=== PATIENT | female | born 1950 | race Caucasian/White ===

== ENCOUNTER 2017-08-17 11:36 | Emergency (ER) | payer OTHER ==
[~2017-08-17] VITALS: Ht 165.1 cm; Wt 81.6 kg
[~2017-08-17 11:36] MED LIST: AMARYL; CIPRO500 MG PO; COZAAR PO; COZAAR25 MG PO; FLAGYL ER750 MG PO; GLIMEPIRIDE4 MG; GLIMEPIRIDE4 MG PO; LEVSIN/SL0.125 MG SL; METFORMIN HCL500 MG; METFORMIN HCL500 MG PO
== END 2017-08-17 16:32 | disposition home or self-care (01) ==
LOC: ER 11:36
DX: J00 Acute nasopharyngitis [common cold] (principal)

== ENCOUNTER 2017-10-15 06:42 | Emergency (ER) | payer OTHER ==
[~2017-10-15] VITALS: Ht 165.1 cm; Wt 79.4 kg
[2017-10-15] MEDS ORDERED: METFORMIN HCL850 MG (07:05)
[2017-10-15] MEDS ORDERED: SIMVASTATIN20 MG (07:08)
== END 2017-10-15 11:27 | disposition home or self-care (01) ==
LOC: ER 06:42
DX: J06.9 Acute upper respiratory infection, unspecified (principal)

== ENCOUNTER 2018-11-10 07:30 | Emergency (ER) | payer OTHER ==
[~2018-11-10] VITALS: Ht 165.1 cm; Wt 81.6 kg
[~2018-11-10 07:30] MED LIST changes: +METFORMIN HCL850 MG; +SIMVASTATIN20 MG
== END 2018-11-10 10:31 | disposition home or self-care (01) ==
LOC: ER 07:30
DX: J40 Bronchitis, not specified as acute or chronic (principal)

== ENCOUNTER 2019-03-18 09:19 | Emergency (ER) | payer OTHER ==
[~2019-03-18] VITALS: Ht 165.1 cm; Wt 81.6 kg
[2019-03-18] MEDS ORDERED: GLIMEPIRIDE4 MG PO (09:39)
[2019-03-18] MEDS ORDERED: METFORMIN HCL1000 M2 PO (09:39)
[2019-03-18] MEDS ORDERED: SIMVASTATIN20 MG PO (09:40)
== END 2019-03-18 17:04 | disposition home or self-care (01) ==
LOC: ER 09:19
DX: K57.30 Diverticulosis of large intestine without perforation or abscess without bleeding (principal); R10.32 Left lower quadrant pain

== ENCOUNTER 2019-06-11 10:21 | Outpatient (CLI) | payer OTHER ==
[~2019-06-11 10:21] MED LIST changes: +METFORMIN HCL1000 M2 PO; +SIMVASTATIN20 MG PO
== END 2019-06-11 16:13 | disposition home or self-care (01) ==
LOC: RAD 10:21
DX: M25.562 Pain in left knee (principal); M25.561 Pain in right knee

== ENCOUNTER 2019-06-17 11:16 | Outpatient (CLI) | payer OTHER | END 2019-06-17 11:18 | disposition home or self-care (01) | LOC: MRI 11:16 | DX: M17.11 Unilateral primary osteoarthritis, right knee (principal); M23.91 Unspecified internal derangement of right knee | CPT/HCPCS: 73718 ==

== ENCOUNTER 2019-10-14 09:39 | Inpatient (IN) | payer OTHER ==
[~2019-10-14] VITALS: Ht 165.1 cm; Wt 65.8 kg
[2019-10-14] MEDS ORDERED: COZAAR25 MG PO (10:17)
--- NOTE | 2019-10-14 10:20 | NUR ---
PAciente alerta, orientada x 3 esferas regfiere tener sandra dolor abdominal cuadrante inferior hace 5 sam, pte hx.diverticulos. se ubica en area de observacion.
--- NOTE | 2019-10-14 11:27 | NUR ---
MR DANIELLE ORIENTA A PACIENTE SOBRE ORDENES MEDICAS, COLECTA MUESTRAS DE ADELFO Y CANALIZA VENA. PACIENTE REHUSO LA ADMINISTRACION DE MORFINA, REFIERE NO TENER DOLOR, TAMBIEN REHUSO LA ADMINISTRACION DE ZOFRAN, REFIERE NO TENER NAUSEAS NI VOMITOS. SE HACE ENTREGA DE CONSTRASTE GASTROVIEW CON INSTRUCCIONES DE TIHERNO INGERIRLO, REFIERE ENTENDER.
--- NOTE | 2019-10-14 15:52 | NUR ---
SE RECIBE PTE ALERTA Y ORIENTADA X 3 ESFERAS EN CAMA CON BARANDAS ELEVADAS POR SEGURIDAD. BUEN PATRON RESPIRATORIO. RECIBIENDO IV'S 0.9NSS BAJANDO A 50ML/HR POR VENOPUNCION EN BRAZO DERECHO AREA NAZARIO DE EDEMA Y ERITEMA. PENDIENTE RESULTADO DE CT. SE MANTIENE EN OBSERVACION POR CAMBIOS.
[2019-10-17] MEDS ORDERED: HYOSCYAMINE0.125 M1 SL (08:45)
[2019-10-17] MEDS ORDERED: LOSARTAN POTASS25 MG PO (08:45)
[2019-10-17] MEDS ORDERED: FAMOTIDINE20 MG PO (08:46)
[2019-10-17] MEDS ORDERED: GLIMEPIRIDE2 MG PO (08:46)
[2019-10-17] MEDS ORDERED: METFORMIN HCL500 MG PO (08:46)
== END 2019-10-17 18:33 | disposition home or self-care (01) | DRG 392 ==
LOC: ER 09:39 → MEDI 17:23 → SEC-K 17:23 → MEDI 18:25
PROVIDERS: ADMIT Internal Medicine; ATTEND Internal Medicine
PROC: BW21Y0Z Computerized Tomography (CT Scan) of Abdomen and Pelvis using Other Contrast, Unenhanced and Enhanced (ICD-10-PCS; principal; 2019-10-14)
DX: K57.32 Diverticulitis of large intestine without perforation or abscess without bleeding (principal); K92.1 Melena; E11.65 Type 2 diabetes mellitus with hyperglycemia; I88.0 Nonspecific mesenteric lymphadenitis; I10 Essential (primary) hypertension; Z20.828 Contact with and (suspected) exposure to other viral communicable diseases; Z79.4 Long term (current) use of insulin

== ENCOUNTER 2020-05-30 13:36 | Emergency (ER) | payer OTHER ==
[~2020-05-30] VITALS: Ht 165.1 cm; Wt 71.2 kg
[~2020-05-30 13:36] MED LIST changes: +FAMOTIDINE20 MG PO; +GLIMEPIRIDE2 MG PO; +HYOSCYAMINE0.125 M1 SL; +LOSARTAN POTASS25 MG PO
== END 2020-05-30 20:10 | disposition home or self-care (01) ==
LOC: ER 13:36
DX: R10.9 Unspecified abdominal pain (principal); K57.90 Diverticulosis of intestine, part unspecified, without perforation or abscess without bleeding

== ENCOUNTER 2023-03-02 09:12 | Outpatient (CLI) | payer OTHER | END 2023-03-02 09:30 | disposition home or self-care (01) | LOC: SONOGRAMA 09:12 | PROVIDERS: ATTEND Internal Medicine Gastroenterology | DX: R10.9 Unspecified abdominal pain (principal) ==

== ENCOUNTER 2023-07-04 07:58 | Outpatient (CLI) | payer OTHER | END 2023-07-04 07:59 | disposition home or self-care (01) | LOC: NUCLEAR 07:58 | PROVIDERS: ATTEND Specialist | DX: D35.1 Benign neoplasm of parathyroid gland (principal) | CPT/HCPCS: 78072; A9500 ==

== ENCOUNTER 2024-11-18 09:51 | Emergency (ER) | payer OTHER ==
[~2024-11-18] VITALS: Ht 165.1 cm; Wt 69.4 kg
[2024-11-18] MEDS ORDERED: ROSUVASTATIN CA10 MG (10:24)
[2024-11-18] MEDS ORDERED: GUAIFEN/DEXTROMETHORPHAN/PE 10 ML BLIST.PACK PO ONE (12:30)
[2024-11-18 13:08] LABS: BASO % 0.5 % (0.1-1.2); EOS # 0.01 (0.04-0.54); EOS % 0.1 % (0.7-7.0); LYMPH # 0.45 (1.18-3.74); LYMPH % 6.1 % (19.3-53.1); MEAN PLATELET VOLUME 9.80 fl (9.4-12.4); MONO # 1.30 (0.24-0.82); NEUT # 5.57 (1.56-6.13); NEUT % 75.3 % (34.0-71.1); RED CELL DISTRIBUTION WIDTH 12.9 % (11.6-14.4)
[2024-11-18 13:11] LABS: MONO % 17.6 % (4.7-12.5)
[2024-11-18 13:27] LABS: COVID-19 AG NEGATIVE (NEGATIVE)
[2024-11-18] MEDS ORDERED: OSEL75CA PO (13:37)
[2024-11-18] MEDS ORDERED: GILTUSS DIABET118 ML PO (13:37)
[2024-11-18] MEDS ORDERED: ACETAMINOPHEN500 M1 PO (13:37)
[2024-11-18] MEDS ORDERED: OSELTAMIVIR PHOSPHATE 75 MG CAPSULE PO ONE (13:45)
== END 2024-11-18 13:44 | disposition home or self-care (01) ==
LOC: ER 09:51
PROVIDERS: Preventive Medicine Public Health & General Preventive Medicine
DX: J10.1 Influenza due to other identified influenza virus with other respiratory manifestations (principal); Z88.2 Allergy status to sulfonamides; K57.32 Diverticulitis of large intestine without perforation or abscess without bleeding; Z20.822 Contact with and (suspected) exposure to COVID-19; E11.9 Type 2 diabetes mellitus without complications; Z79.84 Long term (current) use of oral hypoglycemic drugs